=== PATIENT | female | born 1940 | race Caucasian/White ===

== ENCOUNTER 2017-08-07 10:29 | Outpatient (CLI) | payer OTHER | END 2017-08-07 10:30 | LOC: LAB 10:29 | PROVIDERS: ATTEND Nurse Practitioner Family | DX: E03.4 Atrophy of thyroid (acquired) (principal) | CPT/HCPCS: 36415; 84443 ==

== ENCOUNTER 2018-05-19 09:40 | Emergency (ER) | payer OTHER ==
--- NOTE | 2018-05-19 10:27 | ED Physician Documentation ---
General Adult - HISTORIAN Historian: patient - HPI Chief Complaint: Dyspnea Additional Information: 78yo white female who states that two weeks ago she believes that she was bitten by something on the left breast area. It has since ulcerated and has become an open wound. Patient started to develop some swelling to the left arm two days ago. Patient states that she then started to have some increasing SOB and dyspnea with exerction. Patient denies any cough, chest pain. No history of asthma noted. No previous problems with SOB. No history of CAD or CHF. Onset: days ago (2 days ago) Timing: still present - ROS CONST: no problems. denies: fever, chills CVS/RESP: shortness of breath. denies: chest pain, cough GI/: denies: abdominal pain, vomiting, nausea, diarrhea - PAST HX Past History: other (depression, hypothyroidism. ) Surgeries/Procedures: none Allergies/Adverse Reactions: Allergies Allergy/AdvReac Type Severity Reaction Status Date / Time No Known Allergies Allergy Unverified 05/19/18 10:13 Home Medications: Ambulatory Orders Medication Instructions Recorded Buspirone HCl [Buspar] 10 mg PO DAILY 05/19/18 Furosemide 20 mg PO D #30 tablet 05/19/18 Levothyroxine Sodium [Unithroid] 150 mcg PO DAILY 05/19/18 Venlafaxine HCl [Venlafaxine HCl 150 mg PO DAILY 05/19/18 ER] - SOCIAL HX Smoking History: non-smoker Alcohol Use: none Drug Use: none - FAMILY HX Family History: No (dfenies family hisotry of breast cancer) - REVIEWED ASSESSMENTS Nursing Assessment Reviewed: Yes Vitals Reviewed: Yes ED Results Lab/Radiology - Orders Orders: ED Orders Category Date Time Status Apply/change dressing NOW Care 05/19/18 10:[address] IV Lock 1T Care 05/19/18 10:12 Active CHEST 2VIEW [RAD] Routine Exams 05/19/18 Ordered CBC/PLATELET/DIFF Routine Lab 05/19/18 Ordered CMP Routine Lab 05/19/18 Ordered URINALYSIS Routine Lab 05/19/18 Uncollected WOUND CULTURE Routine Lab 05/19/18 Ordered EKG WITH COMPARISON Routine Ther 05/19/18 Ordered General Adult Physical Exam - PHYSICAL EXAM GENERAL APPEARANCE: no distress EENT: ENT inspection normal, no signs of dehydration NECK: normal inspection, thyroid normal, supple RESPIRATORY: no resp distress, chest non-tender, other (ulcerating mass to the left breast about 6cm in dimeter. There was purkering of the breast tissue. ? mildly enlarged LN in left axilla) CVS: reg rate & rhythm, heart sounds normal, equal pulses, no murmur ABDOMEN: soft, no organomegaly, normal bowel sounds, no abdominal bruit BACK: normal inspection SKIN: warm/dry EXTREMITIES: non-tender, other (generalized swelling to the LUE) NEURO: oriented X3, CN's nml as tested, motor nml, sensation nml, mood/affect nml, cognition normal Discharge Clincal Impression: CHF (congestive heart failure) Qualifiers: Heart failure type: unspecified Heart failure chronicity: acute Qualified Code(s): I50.9 - Heart failure, unspecified Breast cancer Qualifiers: Breast location: unspecified site of breast Estrogen receptor status: unspecified Prescriptions: Furosemide 20 mg PO D #30 tablet Referrals: Jani Brito MD [Emergency Provider] - 05/21/18 11:30 am Additional Instructions: Take lasix as directed, one tablet a day. Try to keep your left arm elevated with an Evelio wrap to help with the swelling. If you develop any further problems to return to the ED. Change dressing to breast wound as needed. Try to decrease the salt in your diet. Condition: Stable Disposition: 01 HOME, SELF-CARE Decision to Admit: NO Date of Decison to Admit: 05/19/18 Decision Time: 11:46
[2018-05-19 10:57] LABS: BASOPHILS % 0.6 (0.0-1.5); EOSINOPHILS % 2.5 % (0.0-6.8); MEAN CORPUSCULAR HEMOGLOBIN 31.8 pg (28.0-34.0); MEAN CORPUSCULAR VOLUME 99.6 fl (80.0-100.0); MONOCYTES % 5.8 % (0.0-11.0); NEUTROPHILS # 6.1 # k/uL (1.4-7.7)
[2018-05-19 11:01] LABS: eGFR (African) > 60; eGFR (Non-African) 38
--- NOTE | 2018-05-19 11:43 | Diagnostic Imaging Report ---
NORIS ROCHA [facility] [address] [facility] [address] Report Submission Date: May 19, 2018 10:50:31 AM CDT Patient Study Name: VIVIANA VOGT Date: May 19, 2018 10:17:45 AM CDT Modality Type: DX Gender: F Description: CHEST : 36 Institution: [facility] Physician: NORIS ROCHA 2 views the chest Clinical history: Dyspnea Findings: The heart size is normal. There is mild pulmonary venous congestion. There are nodular infiltrates in the right lower lobe. Followup recommended. No pleural effusion. No pneumothorax. Impression: 1. Pulmonary venous congestion. 2. Nodular infiltrate right lower lobe Electronically signed on May 19, 2018 10:50:31 AM CDT by: Yonatan LOPES
[2018-05-19 12:15] VITALS: BP 161/94
== END 2018-05-19 12:12 | disposition home or self-care (01) ==
LOC: ED 09:40
DX: I50.9 Heart failure, unspecified (principal); C50.919 Malignant neoplasm of unspecified site of unspecified female breast
CPT/HCPCS: 71046; 80053; 83880; 85025; 87070; 99284

== ENCOUNTER 2018-05-25 10:42 | Outpatient (CLI) | payer OTHER ==
[2018-05-25 11:29] LABS: BASOPHILS % 0.5 (0.0-1.5); EOSINOPHILS % 1.5 % (0.0-6.8); MEAN CORPUSCULAR HEMOGLOBIN 31.4 pg (28.0-34.0); MEAN CORPUSCULAR VOLUME 99.2 fl (80.0-100.0); MONOCYTES % 3.2 % (0.0-11.0); NEUTROPHILS # 4.9 # k/uL (1.4-7.7)
[2018-05-25 12:02] LABS: eGFR (African) 37; eGFR (Non-African) 31
--- NOTE | 2018-05-25 20:29 | Diagnostic Imaging Report ---
NORIS ROCHA [facility] [address] [facility].[address] [address] Report Submission Date: May 25, 2018 11:41:16 AM CDT Patient Study Name: VIVIANA VOGT Date: May 25, 2018 11:13:35 AM CDT Modality Type: DX Gender: F Description: CHEST : 36 Institution: [facility] Physician: NORIS ROCHA PA and lateral chest History: Follow up small right lower lobe infiltrate noted on a prior radiograph PA and lateral chest dated May 25, 2018 is compared with May 19, 2018. The cardiomediastinal silhouette is unchanged. Heart size is normal. There is a small hiatal hernia. The thoracic aorta is tortuous and there is dextroscoliosis of the thoracic spine. The prominent interstitial markings are present in a left perihilar distribution, unchanged. There is a persistent small region of right lower lobe infiltrate. Without older radiographs prior to May 19, 2018, it is difficult to determine whether these findings are acute or chronic in nature especially in this patient who is a former smoker. Impression: Persistent prominent interstitial markings in a left perihilar distribution and persistent small right lower lobe infiltrate. These findings are age indeterminate but have not changed since May 19, 2018. Continued follow-up would be recommended. Small hiatal hernia. Electronically signed on May 25, 2018 11:41:16 AM CDT by: Jennifer LOPES
== END 2018-05-25 12:33 ==
LOC: RAD 10:42
PROVIDERS: ATTEND Family Medicine
DX: C50.412 Malignant neoplasm of upper-outer quadrant of left female breast (principal); I50.9 Heart failure, unspecified
CPT/HCPCS: 36415; 71046; 80053; 83880; 85025

== ENCOUNTER 2018-09-02 16:06 | Emergency (ER) | payer OTHER ==
[2018-09-02 16:31] VITALS: BP 137/94
--- NOTE | 2018-09-02 16:36 | ED Physician Documentation ---
General Adult - HISTORIAN Historian: patient - HPI Stated Complaint: Sore Throat/ Nausea & Vomiting Chief Complaint: General Adult Additional Information: Woke up with sore throat this morning. Has vomited several times since. Has felt warm. No sweats. Has urinated several times today. Takes dose 21 today of 21 day course of Ibrance for breast cancer. Says this medication makes her short of breath, but doesn't typically cause her to be nauseated. This is her third course of Ibrance. No other modifying factors or associated signs. - ROS CONST: fever (??) - PAST HX Past History: other (breast cancer) Allergies/Adverse Reactions: Allergies Allergy/AdvReac Type Severity Reaction Status Date / Time No Known Allergies Allergy Unverified 05/19/18 10:13 Home Medications: Ambulatory Orders Medication Instructions Recorded Buspirone HCl [Buspar] 10 mg PO DAILY 05/19/18 Furosemide 20 mg PO D #30 tablet 05/19/18 Levothyroxine Sodium [Unithroid] 150 mcg PO DAILY 05/19/18 Venlafaxine HCl [Venlafaxine HCl 150 mg PO DAILY 05/19/18 ER] Amoxicillin 500 mg PO Q8H #30 capsule 09/02/18 Ondansetron HCl Rapdis [Zofran Odt] 4 mg PO Q6 PRN #10 tab 09/02/18 - SOCIAL HX Smoking History: non-smoker - FAMILY HX Family History: No - VITAL SIGNS Vital Signs: Vital Signs Temp Pulse Resp BP Pulse Ox 97.1 F L 96 H 22 137/94 96 09/02/18 16:10 09/02/18 16:10 09/02/18 16:10 09/02/18 16:10 09/02/18 16:10 - REVIEWED ASSESSMENTS Nursing Assessment Reviewed: Yes Vitals Reviewed: Yes ED Results Lab/Radiology - Orders Orders: ED Orders Category Date Time Status Place IV Lock 1T Care 09/02/18 16:23 Active CBC/PLATELET/DIFF Routine Lab 09/02/18 16:20 Received CMP Routine Lab 09/02/18 16:20 Received Rapid Strep [GRP A STREP SCREEN] Stat Lab 09/02/18 Ordered NORMAL SALINE @ 500 MLS/HR ( 1000ml BOLUS) Med 09/02/18 16:32 Ordered 0.9 % Sodium Chloride [Normal Saline] 1,000 ml IV Q2H General Adult Physical Exam - PHYSICAL EXAM GENERAL APPEARANCE: mild distress EENT: eye inspection normal, pharyngeal erythema (pronounced ) NECK: normal inspection, supple RESPIRATORY: no resp distress, breath sounds normal CVS: reg rate & rhythm, heart sounds normal ABDOMEN: soft, normal bowel sounds BACK: no CVA tenderness, other (scoliosis. No vertebral tenderness) SKIN: warm/dry, normal color EXTREMITIES: no evidence of injury NEURO: CN's nml as tested, motor nml, sensation nml, cognition normal Discharge Clincal Impression: Nausea and vomiting Qualifiers: Vomiting type: unspecified Vomiting Intractability: non-intractable Qualified C ode(s): R11.2 - Nausea with vomiting, unspecified Pharyngitis Qualifiers: Pharyngitis/tonsillitis etiology: unspecified etiology Qualified Code(s): J02.9 - Acute pharyngitis, unspecified Prescriptions: Amoxicillin 500 mg PO Q8H #30 capsule Ondansetron HCl Rapdis [Zofran Odt] 4 mg PO Q6 PRN #10 tab PRN Reason: Nausea / Vomiting Referrals: Jani Brito MD [Primary Care Provider] - 2 Days Additional Instructions: Advance your diet very slowly. Return to the ER if you are not able to urinate for 8 hours or more. Condition: Fair Disposition: 01 HOME, SELF-CARE Decision to Admit: NO Decision Time: 17:20
[2018-09-02 16:43] LABS: EOSINOPHILS % 8.5 % (0.0-6.8); MEAN CORPUSCULAR HEMOGLOBIN 33.3 pg (28.0-34.0); NEUTROPHILS # 1.8 # k/uL (1.4-7.7)
[2018-09-02] MEDS: 0.9 % SODIUM CHLORIDE 1,000 ML IV ONE (16:45)
[2018-09-02] MEDS: ONDANSETRON HCL/PF 4 MG/ 2ML VIAL IVP ONE (16:50)
[2018-09-02 17:09] LABS: eGFR (Non-African) 42
== END 2018-09-02 18:38 | disposition home or self-care (01) ==
LOC: ED 16:06
DX: J02.9 Acute pharyngitis, unspecified (principal); R11.2 Nausea with vomiting, unspecified; C50.919 Malignant neoplasm of unspecified site of unspecified female breast
CPT/HCPCS: 80053; 85025; 87070; 87880; J2405; J7030; 96365; 96366; 96375; 99284; S1016

== ENCOUNTER 2019-07-26 16:05 | Emergency (ER) | payer OTHER ==
--- NOTE | 2019-07-26 16:17 | ED Physician Documentation ---
General Adult - HISTORIAN Historian: patient - HPI Stated Complaint: purulent discharge left jaw Chief Complaint: General Adult Additional Information: Patient presents to ED with complaint of malaise and weakness x 2 days. Patient states she started Amoxicillin on Monday and has taken 3 doses for purulent drainage from left chin. Patient has breast cancer and is on Ibrance, however, this medication has been on hold for past 30 days due to low WBC, RBC count. She states for the past 2 days she has slept constantly and is very weak. Today she had some nausea. She denies fever or chills. Onset: days ago (3) Timing: still present Severity: moderate - ROS CONST: weakness. denies: fever EYES/ENT: other (purulent discharge from left chin/jaw) CVS/RESP: denies: chest pain, shortness of breath GI/: nausea MS/SKIN/LYMPH: denies: calf pain NEURO/PSYCH: denies: headache - PAST HX Past History: other (Breast cancer) Surgeries/Procedures: none Allergies/Adverse Reactions: Allergies Allergy/AdvReac Type Severity Reaction Status Date / Time No Known Allergies Allergy Verified 07/26/19 16:20 Home Medications: Ambulatory Orders Medication Instructions Recorded Buspirone HCl [Buspar] 10 mg PO DAILY 05/19/18 Furosemide 20 mg PO D #30 tablet 05/19/18 Levothyroxine Sodium [Unithroid] 150 mcg PO DAILY 05/19/18 Venlafaxine HCl [Venlafaxine HCl 150 mg PO DAILY 05/19/18 ER] Amoxicillin 500 mg PO Q8H #30 capsule 09/02/18 Clindamycin HCl [Cleocin] 300 mg PO Q6 10 Days #40 capsule 07/26/19 Ondansetron HCl Rapdis [Zofran Odt] 4 mg PO Q8 PRN #20 tab 07/26/19 Palbociclib [Ibrance] 1 tab PO DAILY 07/26/19 amLODIPine BESYLATE [Norvasc] 2.5 mg PO DAILY 07/26/19 - SOCIAL HX Smoking History: cigarettes Alcohol Use: none Drug Use: none - FAMILY HX Family History: No - VITAL SIGNS Vital Signs: Vital Signs Temp Pulse Resp BP Pulse Ox 137/94 09/02/18 18:38 - REVIEWED ASSESSMENTS Nursing Assessment Reviewed: Yes Vitals Reviewed: Yes ED Results Lab/Radiology - Radiology Radiology Impressions: Report Submission Date: Jul 26, 2019 5:51:58 PM CDT Patient Study Name: VIVIANA VOGT Date: Jul 26, 2019 5:17:29 PM CDT Modality Type: DX Gender: F Description: CHEST 2VIEW : 36 Institution: [facility] Physician: ROSINA DAVIDSON Chest, two views History: Wheezing and cough. Findings: The heart size is normal. There is S shaped thoracolumbar scoliosis present. There is severe emphysematous change with coarsened bronchovascular markings and lung hyperinflation. No definite acute infiltrate is present. Gas-filled loops of bowel is seen within the right upper quadrant. Impression: 1. Severe emphysematous change without acute infiltrate. Electronically signed on Jul 26, 2019 5:51:58 PM CDT by: Alan Dias Report Submission Date: Jul 26, 2019 5:51:58 PM CDT Patient Study Name: VIVIANA VOGT Date: Jul 26, 2019 5:17:29 PM CDT Modality Type: DX Gender: F Description: CHEST 2VIEW : 36 Institution: [facility] Physician: ROSINA DAVIDSON Report Submission Date: Jul 26, 2019 6:00:42 PM CDT Patient Study Name: VIVIANA VOGT Date: Jul 26, 2019 5:30:22 PM CDT Modality Type: CT\SR Gender: F Description: CT STN W/O : 36 Institution: [facility] Physician: ROSINA DAVIDSON CT soft tissue neck with out contrast History:. Lying discharge of left chin region with drainage for 1 week. Technique: Transaxial computed tomographic images of the neck were obtained without contrast according to standard protocol. Coronal and sagittal reformatted images were obtained as part of the examination. Findings: The skull base is normal. Several dental fillings are present.. Goal lucency seen at the base of the central incisors of the mandible consistent with root abscess. Several teeth are missing. There is no soft tissue fluid collection or abscess identified. There is mild soft tissue thickening in the left submental region in the region of interest may represent cellulitis or previously drained abscess. No evidence of osseous erosion identified. There is degenerative change in the cervical spine. There is sclerotic lesions are present throughout the cervical vertebrae. Impression: 1. Mild skin thickening in the region of interest in the left submental region which may represent area of focal cellulitis or site of previously drained abscess. No residual fluid collection identified. 2. 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 Electronically signed on Jul 26, 2019 6:00:42 PM CDT by: Alan Dias General Adult Physical Exam - PHYSICAL EXAM GENERAL APPEARANCE: ill appearing EENT: eye inspection normal, DAVIE, other (purulent discharge left chin/jaw) RESPIRATORY: no resp distress, wheezes (scattered bilaterally) CVS: reg rate & rhythm, heart sounds normal ABDOMEN: soft, normal bowel sounds, non-tender BACK: normal inspection, no CVA tenderness SKIN: warm/dry, pallor EXTREMITIES: non-tender, no edema NEURO: oriented X3, motor nml Discharge Clincal Impression: Cellulitis of jaw, left Prescriptions: Clindamycin HCl [Cleocin] 300 mg PO Q6 10 Days #40 capsule Ondansetron HCl Rapdis [Zofran Odt] 4 mg PO Q8 PRN #20 tab PRN Reason: nausea/vomiting Referrals: Jani Brito MD [Primary Care Provider] - 2 Days Additional Instructions: 1. Stop taking Amoxicillin 2. Start Clindamycin 3. Zofran every 6 hours as needed for nausea 4. Follow up with Oncologist as soon as possible 5. Follow up with Dr. Brito within 4 days 6. Return to ER for new or worsening symptoms Condition: Stable Disposition: 01 HOME, SELF-CARE Decision to Admit: NO Date of Decison to Admit: 07/26/19 Decision Time: 18:09
[2019-07-26 16:45] LABS: BASOPHILS % 0.5 % (0.0-1.5); NEUTROPHILS # 8.1 # k/uL (1.4-7.7)
[2019-07-26 17:12] LABS: eGFR (Non-African) 36
[2019-07-26] MEDS: 0.9 % SODIUM CHLORIDE 1,000 ML IV ONE (17:45)
[2019-07-26] MEDS: CLINDAMYCIN HCL 150 MG CAPSULE PO ONE (18:02)
[2019-07-26] MEDS: ONDANSETRON HCL/PF 4 MG/ 2ML VIAL IVP ONE (18:02)
[2019-07-26 18:49] VITALS: BP 171/88
--- NOTE | 2019-07-26 23:57 | Diagnostic Imaging Report ---
ROSINA DAVIDSON [facility] [address] [facility] [address] [place], [place]. [address] Report Submission Date: Jul 26, 2019 6:00:42 PM CDT Patient Study Name: VIVIANA VOGT Date: Jul 26, 2019 5:30:22 PM CDT Modality Type: CT\SR Gender: F Description: CT STN W/O : 36 Institution: [facility] Physician: ROSINA DAVIDSON CT soft tissue neck with out contrast History:. Lying discharge of left chin region with drainage for 1 week. Technique: Transaxial computed tomographic images of the neck were obtained without contrast according to standard protocol. Coronal and sagittal reformatted images were obtained as part of the examination. Findings: The skull base is normal. Several dental fillings are present.. Goal lucency seen at the base of the central incisors of the mandible consistent with root abscess. Several teeth are missing. There is no soft tissue fluid collection or abscess identified. There is mild soft tissue thickening in the left submental region in the region of interest may represent cellulitis or previously drained abscess. No evidence of osseous erosion identified. There is degenerative change in the cervical spine. There is sclerotic lesions are present throughout the cervical vertebrae. Impression: 1. Mild skin thickening in the region of interest in the left submental region which may represent area of focal cellulitis or site of previously drained abscess. No residual fluid collection identified. 2. 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 Electronically signed on Jul 26, 2019 6:00:42 PM CDT by: Alan LOPES
--- NOTE | 2019-07-26 23:58 | Diagnostic Imaging Report ---
ROSINA DAVIDSON [facility] [address] [facility].[address] [address] Report Submission Date: Jul 26, 2019 5:51:58 PM CDT Patient Study Name: VIVIANA VOGT Date: Jul 26, 2019 5:17:29 PM CDT Modality Type: DX Gender: F Description: CHEST 2VIEW : 36 Institution: [facility] Physician: ROSINA DAVIDSON Chest, two views History: Wheezing and cough. Findings: The heart size is normal. There is S shaped thoracolumbar scoliosis present. There is severe emphysematous change with coarsened bronchovascular markings and lung hyperinflation. No definite acute infiltrate is present. Gas-filled loops of bowel is seen within the right upper quadrant. Impression: 1. Severe emphysematous change without acute infiltrate. Electronically signed on Jul 26, 2019 5:51:58 PM CDT by: Alan LOPES
== END 2019-07-26 18:25 | disposition home or self-care (01) ==
LOC: ED 16:05
DX: L03.211 Cellulitis of face (principal)
CPT/HCPCS: 70490; 71046; 80053; 85025; 96361; 96374; 99284; A9270; J2405; J7030; S1016